=== PATIENT | male | born 1990 | race Caucasian/White ===

== ENCOUNTER 2020-07-09 14:10 | Emergency (ER) | payer OTHER, SELFPAY ==
--- NOTE | 2020-07-09 14:17 | XR_ITS ---
EXAMINATION: XR CHEST CLINICAL INFORMATION: Cough, fever COMPARISON: Chest 10/06/2019 TECHNIQUE: Frontal view (2 images) of the chest was obtained. FINDINGS: No significant abnormality is noted involving the heart, lungs, mediastinum, bony thorax or soft tissues. XR/XR chest 1V IMPRESSION: Unremarkable examination.
[2020-07-09 14:19] VITALS: BP 151/79; PULSE 108; RESP 18; TEMP 37.7; O2SAT 96; BMI 28.0
--- NOTE | 2020-07-09 14:46 | ED.URI ---
HPI - URI/Sore Throat General Chief Complaint: Upper Respiratory Symptoms Stated Complaint: Fever, Cough Time Seen by Provider: 07/09/20 14:16 Source: patient Mode of arrival: ambulatory History of Present Illness HPI Narrative: 29-year-old male with a past medical history of presenting to ED complaining of fever T-max 101?, and productive cough of phlegm since yesterday. Admits to recent travel to [place], return on Saturday, had negative COVID-19 testing upon returning to [place]. Denies CP/SOB, LE edema, history of clots, sick contacts MD elicited complaint: fever and cough Related Data Home Medications Medication Instructions Recorded Confirmed omeprazole 20 mg capsule,delayed 20 mg PO DAILY 05/10/20 05/22/20 release ranitidine HCl 150 mg tablet 150 mg PO .qd tab 05/10/20 05/10/20 Allergies Allergy/AdvReac Type Severity Reaction Status Date / Time NSAIDS (Non-Steroidal Allergy Severe STOMACH Unverified 04/14/20 19:29 Anti-Inflamma ULCER [NSAIDS (NON-STEROIDAL ANTI-INFLAMMA] shrimp [SHRIMP] Allergy Severe ANAPHYLAXIS Unverified 04/14/20 19:29 latex [LATEX] Allergy Intermediate RASH Unverified 04/14/20 19:29 aspirin [ASPIRIN] AdvReac Severe HX GASTRIC Unverified 04/14/20 19:29 ULCER, BLEEDING none Allergy Unknown Uncoded 04/03/19 00:00 Review of Systems Review of Systems: Constitutional: No Weight loss,+ Fever, No Chills ENT/Mouth: No Ear Pain, No Nasal Congestion, No Sinus Pain, No Hoarseness, No sore throat Cardiovascular: No Chest Pain, No SOB Respiratory: + Cough, + Sputum, No Wheezing Gastrointestinal: No Nausea, No Vomiting, No Diarrhea, No Constipation, No Abdominal pain Yes all other systems are reviewed and are negative PMFSH Past Medical History Attestation statement: The following information was validated with the patient. Medical History (Updated 07/09/20 @ 14:51 by ELSA Hernandez) History of duodenal ulcer Surgical History (Updated 05/10/20 @ 13:41 by MEAGAN Emanuel) Hx of colonoscopy (~02/2018) Hx of endoscopy Family History Family History (Updated 05/10/20 @ 13:42 by MEAGAN Emanuel) Father HTN (hypertension) Mother HTN (hypertension) Social History Social History (Updated 05/10/20 @ 13:43 by MEAGAN Emanuel) Alcohol intake: never Smoking Status: Never smoker Use of substances other than those prescribed or required for medical reasons: No Advance Directives: No Advance Directives Information Provided: No Physical Exam Vital Signs: Vital Signs: Last Vital Signs Temp 99.8 F 07/09/20 15:15 Pulse 115 H 07/09/20 15:15 Resp 16 07/09/20 15:15 BP 142/74 H 07/09/20 15:15 Pulse Ox 98 07/09/20 15:15 Body Mass Index 28.0 Const: General: cooperative and healthy appearing Orientation/consciousness: patient oriented x3 Limitations: no limitations HENMT: Head: Yes normal to inspection Ears: hearing grossly normal bilaterally General nose exam: Normal external nose present Face and sinus: Yes normal facial exam Eyes: General: appearance normal, both eyes and all related structures EOM: EOMs intact bilaterally Neck: Neck: Yes normal visual inspection and Yes no meningeal signs Resp: Effort & Inspection: normal respiratory effort Auscultation: clear to auscultation bilaterally, no rales, no rhonchi and no wheezes Cardio: Rate: regular rate Heart sounds: S1 normal heart sound present and S2 normal heart sound present GI: Inspection: Yes normal to inspection Skin: Rashes: no rashes Wounds: no wounds Neuro: General: patient oriented x3 and no meningeal signs Gait exam (Neuro): Normal gait present Extrem: Other: No LE edema General: Yes normal to inspection Course Course Course Narrative: -CXR unremarkable -1523--repeat vital signs patient is still with temp 99.8, still tachycardic, will obtain labs to rule out PE due to risk factors of travel and possible COVID-19 -1631-- WBC count 5.1, D-dimer negative, labs otherwise unremarkable -troponin negative, BNP negative -labs/imaging results discussed with patient with license and permit specialist. Worrisome signs and symptoms and strict return precautions discussed. Patient verbalized understanding feel safe for discharge home MDM - URI/Sore Throat MDM Narrative Medical decision making narrative: On exam tachycardic, low-grade temp 99.8?, tachycardia likely from fever, NAD/nontoxic-appearing, lungs CTA. Concern for viral syndrome/COVID-19. Rule out pneumonia. Lower concern for ACS/PE. Plan: CXR, COVID-19, Tylenol, reassessed Lab Data Result diagrams: 07/09/20 15:32 07/09/20 15:32 Labs: Lab Results 07/09/20 07/09/20 07/09/20 Range/Units 15:32 15:32 15:32 WBC 5.1 (4.8-10.8) X10*3/uL RBC 5.35 (4.60-5.80) X10*6/uL Hgb 15.2 (14.0-18.0) g/dl Hct 46.9 (42-52) % MCV 87.7 (80-98) fL MCH 28.4 (27.0-33.0) pg MCHC 32.4 (31.0-36.0) g/dl RDW 13.1 (11.0-16.0) % Plt Count 170 (160-400) X10*3/uL MPV 10.7 (9.4-12.4) fL Immature Gran % (Auto) 0.4 (0.0-0.4) % Neut % (Auto) 79.8 H (45-73) % Lymph % (Auto) 10.4 L (20-40) % [place] % (Auto) 8.6 (2-11) % Eos % (Auto) 0.4 (0-4) % Baso % (Auto) 0.4 (0-2) % Lymph # (Auto) 0.5 L (1.2-4.9) X10*3/uL [place] # (Auto) 0.4 (0.1-1.2) X10*3/uL Eos # (Auto) 0.0 (0.0-0.4) X10*3/uL Baso # (Auto) 0.0 (0.0-0.2) X10*3/uL Abs Immat Gran (auto) 0.02 (0.00-0.03) X10*3/uL Absolute Neuts (auto) 4.1 (2.0-8.3) X10*3/uL Absolute Nucleated RBC 0.000 (0.0-0.012) X10*3/uL Nucleated RBC % (auto) 0.0 (0.0-0.2) /100WBC Smear Tech's Comments VERIFIED D-Dimer < 200 NG/ML Sodium 139 (135-145) mmol/L Potassium 3.6 (3.3-5.1) mmol/l Chloride 104 (96-108) mmol/L Carbon Dioxide 27 (22-29) mmol/L Anion Gap 12 (12-20) BUN 13 (9-16) mg/dL Creatinine 0.90 (0.5-1.4) mg/dL Estim Creat Clear Calc 157.8 Estimated GFR > 60 Random Glucose 84 (60-115) mg/dL Calcium 9.0 (8.4-10.2) mg/dL Ferritin 30 (20-250) ng/mL Total Bilirubin (0.0-1.0) mg/dL Direct Bilirubin (0.0-0.5) mg/dL AST (5-37) U/L ALT (0-40) U/L Alkaline Phosphatase (39-117) U/L Lactate Dehydrogenase 141 (118-273) U/L Troponin I High Sens (<3.5-35.0) ng/L C-Reactive Protein 0.34 (< or = 0.50) mg/dL B-Natriuretic Peptide (<100) pg/mL Total Protein (6.5-8.0) g/dL Albumin (3.5-5.0) g/dL Procalcitonin ng/mL 07/09/20 07/09/20 07/09/20 Range/Units 15:32 15:32 15:32 WBC (4.8-10.8) X10*3/uL RBC (4.60-5.80) X10*6/uL Hgb (14.0-18.0) g/dl Hct (42-52) % MCV (80-98) fL MCH (27.0-33.0) pg MCHC (31.0-36.0) g/dl RDW (11.0-16.0) % Plt Count (160-400) X10*3/uL MPV (9.4-12.4) fL Immature Gran % (Auto) (0.0-0.4) % Neut % (Auto) (45-73) % Lymph % (Auto) (20-40) % [place] % (Auto) (2-11) % Eos % (Auto) (0-4) % Baso % (Auto) (0-2) % Lymph # (Auto) (1.2-4.9) X10*3/uL [place] # (Auto) (0.1-1.2) X10*3/uL Eos # (Auto) (0.0-0.4) X10*3/uL Baso # (Auto) (0.0-0.2) X10*3/uL Abs Immat Gran (auto) (0.00-0.03) X10*3/uL Absolute Neuts (auto) (2.0-8.3) X10*3/uL Absolute Nucleated RBC (0.0-0.012) X10*3/uL Nucleated RBC % (auto) (0.0-0.2) /100WBC Smear Tech's Comments D-Dimer NG/ML Sodium (135-145) mmol/L Potassium (3.3-5.1) mmol/l Chloride (96-108) mmol/L Carbon Dioxide (22-29) mmol/L Anion Gap (12-20) BUN (9-16) mg/dL Creatinine (0.5-1.4) mg/dL Estim Creat Clear Calc Estimated GFR Random Glucose (60-115) mg/dL Calcium (8.4-10.2) mg/dL Ferritin (20-250) ng/mL Total Bilirubin 0.7 (0.0-1.0) mg/dL Direct Bilirubin 0.3 (0.0-0.5) mg/dL AST 22 (5-37) U/L ALT 25 (0-40) U/L Alkaline Phosphatase 77 (39-117) U/L Lactate Dehydrogenase (118-273) U/L Troponin I High Sens < 3.5 (<3.5-35.0) ng/L C-Reactive Protein (< or = 0.50) mg/dL B-Natriuretic Peptide < 10 (<100) pg/mL Total Protein 7.7 (6.5-8.0) g/dL Albumin 4.6 (3.5-5.0) g/dL Procalcitonin 0.05 ng/mL Discharge Plan Discharge Clinical Impression: Upper respiratory infection Qualifiers: URI type: unspecified URI Qualified Code(s): J06.9 - Acute upper respiratory infection, unspecified Patient Disposition: Home, Self-Care Instructions: Viral Syndrome (ED) Additional Instructions: Based on your symptoms and history we have sent a COVID-19. Although your RESULT IS PENDING at this time. RESULTS should return within 72 hours. At this time you will be contacted with either NEGATIVE OR POSITIVE results. -Please wait until we contact you for your results. At this time you will be okay for discharge. Please plan for self quarantine for up to 14 days. Do not expose yourself to others. You may not go to work. If testing does come back negative you may return to activities as long as you are no longer having any symptoms for at least 3 days. Please continue to follow cold instructions and wash your hands frequently. You may take Tylenol as directed on the bottle for pain or fever. CDC Guidelines for home isolation: - Stay away from others - WEAR A MASK if you are sick AND STAY HOME - Cover your mouth and nose with a tissue when you cough or sneeze. Dispose of tissues in a lined trash can and wash your hands immediately with soap and water for at least 20 seconds. If soap and water are not available, clean hands with alcohol-based hand supervisor special services that contains at least 60% alcohol. - Clean your hands often with soap and water for at least 20 seconds - Avoid touching your eyes, nose and mouth with unwashed hands - Do not share dishes, drinking glasses, cups, eating utensils, towels, or bedding with other people in your home. After using these items, wash them thoroughly with soap and water or put in the solution sales senior executive. - Clean high-touch surfaces in your isolation area ( sick room and bathroom) every day; let a caregiver clean and disinfect high-touch surfaces in other areas of the home. Clean the area or item with soap and water or another detergent if it is dirty. Then, use a household disinfectant. - Limit contact with pets and animals: If you must care for a pet, wash your hands before and after interacting with them) Seg?n maximilian s?ntomas e historial, le enviamos un COVID-19. Aunque hancock RESULTADO EST? PENDIENTE en connie momento. Los RESULTADOS deben regresar dentro de las 72 horas. En connie momento ser? contactado con resultados NEGATIVOS O POSITIVOS. -Espere hasta que nos comuniquemos con usted para conocer maximilian resultados. En connie momento estar? carmen para el romina. Planifique la auto cuarentena diamond un m?ximo de 14 d?as. No se exponga a los dem?s. Puede que no vaya a trabajar. Si las pruebas resultan negativas, puede volver a maximilian actividades siempre que ya no tenga cherie?n s?ntoma diamond al menos 3 d?as. Contin?e siguiendo las instrucciones en fr?o y l?vese las keshav con frecuencia. Puede gaston Tylenol jeanie se indica en el frasco para el dolor o la fiebre. [place] de los CDC para el aislamiento en el hogar: - Mantente alejado de los dem?s - USE KAREN M?SCARA si est? enfermo Y QUEDE EN CASA - C?brase la boca y la nariz con un pa?uelo cuando tosa o estornude. Deseche los pa?uelos desechables en un bote de basura forrado y l?vese las keshav inmediatamente con agua y jab?n diamond al menos 20 segundos. Si no dispone de agua y jab?n, l?vese las keshav con un desinfectante para keshav a base de alcohol que contenga al menos un 60% de alcohol. - L?vese las keshav con frecuencia con agua y jab?n diamond al menos 20 segundos - Evite tocarse los ojos, la nariz y la boca con las keshav sin cassandra - No comparta platos, vasos, tazas, cubiertos, toallas o ropa de cama con otras personas en hancock hogar. Despu?s de usar estos art?culos, l?velos carmen con agua y jab?n o p?ngalos en el [place]. - Limpie las superficies de alto contacto en hancock ?melita de aislamiento ( habitaci?n de enfermo y ba?o) todos los d?as; deje que un cuidador limpie y desinfecte las superficies de alto contacto en otras ?reas de la casa. Limpie el ?melita o el art?culo con agua y jab?n u otro detergente si est? sucio. Luego, use un desinfectante dom?stico. - Limite el contacto con mascotas y animales: si debe cuidar a karen mascota, l?vese las keshav antes y despu?s de interactuar con ellos) Prescriptions: No Action omeprazole 20 mg capsule,delayed release(DR/EC) 20 mg PO DAILY RF: 0 ranitidine HCl 150 mg tablet 150 mg PO .qd RF: 0 Referrals: [facility] [Primary Care Provider] - 2 days Stand Alone Forms: Work/School Release Print Language: Tajik
[2020-07-09] MEDS: Acetaminophen 325 MG TABLET PO (15:09)
[2020-07-09 15:15] VITALS: BP 142/74; PULSE 115; RESP 16; TEMP 37.7; O2SAT 98
[2020-07-09 15:44] LABS: Basophils Percent Auto 0.4 % (0-2); Eosinophils Percent Auto 0.4 % (0-4); Hematocrit 46.9 % (42-52); Hemoglobin 15.2 g/dl (14.0-18.0); Imm Gran Abs Auto 0.02 X10*3/uL (0.00-0.03); Imm Gran Pct Auto 0.4 % (0.0-0.4); Lymphocytes Absolute Auto 0.5 X10*3/uL (1.2-4.9); Lymphocytes Percent Auto 10.4 % (20-40); MANUAL DIFF FLAG SCAN; Mean Corpuscular HGB Conc 32.4 g/dl (31.0-36.0); Mean Corpuscular Hemoglobin 28.4 pg (27.0-33.0); Mean Corpuscular Volume 87.7 fL (80-98); Mean Platelet Volume 10.7 fL (9.4-12.4); Monocytes Absolute Auto 0.4 X10*3/uL (0.1-1.2); Monocytes Percent Auto 8.6 % (2-11); Neutrophils Absolute Auto 4.1 X10*3/uL (2.0-8.3); Neutrophils Percent Auto 79.8 % (45-73); Platelet Count 170 X10*3/uL (160-400); Red Blood Count 5.35 X10*6/uL (4.60-5.80); Red Cell Distribution Width 13.1 % (11.0-16.0); SCAN SMEAR FLAG 1; White Blood Count 5.1 X10*3/uL (4.8-10.8)
[2020-07-09 15:51] LABS: D Dimer < 200 NG/ML
[2020-07-09 16:01] LABS: Anion Gap 12 (12-20); Blood Urea Nitrogen 13 mg/dL (9-16); C Reactive Protein 0.34 mg/dL (< or = 0.50); Carbon Dioxide 27 mmol/L (22-29); Chloride 104 mmol/L (96-108); Creatinine Clr Calc Pharmacy 157.8; Estimated Glomerular Filt Rate > 60; Glucose Random 84 mg/dL (60-115); Lactate Dehydrogenase 141 U/L (118-273); Potassium 3.6 mmol/l (3.3-5.1); Sodium 139 mmol/L (135-145)
[2020-07-09 16:03] LABS: SLIDE REVIEW VERIFIED
[2020-07-09 16:04] LABS: Alanine Aminotransferase 25 U/L (0-40); Albumin Level 4.6 g/dL (3.5-5.0); Alkaline Phosphatase 77 U/L (39-117); Aspartate Amino Transferase 22 U/L (5-37); Bilirubin Direct 0.3 mg/dL (0.0-0.5); Bilirubin Total 0.7 mg/dL (0.0-1.0); Total Protein 7.7 g/dL (6.5-8.0)
[2020-07-09 16:21] LABS: Procalcitonin 0.05 ng/mL
[2020-07-09 16:24] LABS: Ferritin 30 ng/mL (20-250)
[2020-07-09 16:51] LABS: B Type Natriuretic Peptide < 10 pg/mL (<100); Troponin-I High Sensitivity < 3.5 ng/L (<3.5-35.0)
== END 2020-07-09 17:48 | disposition home or self-care (01) ==
PROVIDERS: Physician Assistant; Emergency Provider Internal Medicine
DX: U07.1 COVID-19 (principal)
CPT/HCPCS: 36415; 71045; 80048; 80076; 82728; 83615; 83880; 84145; 84484; 85025; 85379; 86140; 99284; U0003

== ENCOUNTER 2020-07-19 16:29 | Outpatient (REF) | payer SELFPAY | END 2020-07-19 16:30 | disposition home or self-care (01) | LOC: HO.LAB 16:29 | PROVIDERS: Visit Provider Internal Medicine | DX: Z20.828 Contact with and (suspected) exposure to other viral communicable diseases (principal) | CPT/HCPCS: C9803; U0003 ==

== ENCOUNTER 2020-08-22 09:33 | Outpatient (REF) | payer MEDICAID, SELFPAY ==
--- NOTE | 2020-08-22 09:41 | XR_ITS ---
EXAMINATION: XR ELBOW, RIGHT CLINICAL INFORMATION: Pain COMPARISON: None TECHNIQUE: AP, lateral, and oblique views of the right elbow. FINDINGS: The bones and soft tissues are normal. No fracture or joint effusion. Alignment is anatomic. Joint spaces are maintained. XR/XR elbow RT min 3V IMPRESSION: Normal right elbow.
== END 2020-08-22 09:34 | disposition home or self-care (01) ==
LOC: HO.XRAY 09:33
PROVIDERS: PCP Internal Medicine; Visit Provider Internal Medicine
DX: M25.521 Pain in right elbow (principal)
CPT/HCPCS: 73080

== ENCOUNTER → 2020-09-14 10:10 | Outpatient (BNVA) | payer MEDICAID, SELFPAY | PROVIDERS: PCP Internal Medicine; Visit Provider Physician Assistant | DX: M77.8 Other enthesopathies, not elsewhere classified (principal) | CPT/HCPCS: 99202 ==

== ENCOUNTER → 2020-11-18 10:13 | Outpatient (BNVA) | payer MEDICAID, SELFPAY | PROVIDERS: PCP Internal Medicine; Visit Provider Nurse Practitioner ==

== ENCOUNTER → 2021-05-01 09:22 | Outpatient (BNVA) | payer MEDICAID, SELFPAY | PROVIDERS: PCP Internal Medicine; Visit Provider Nurse Practitioner ==

== ENCOUNTER 2021-08-06 21:49 | Emergency (ER) | payer MEDICAID, SELFPAY ==
[2021-08-06 22:03] VITALS: BP 133/68; PULSE 88; RESP 16; TEMP 36.2; O2SAT 99; BMI 28.1
[2021-08-06] MEDS: Lidocaine 4 % Patch ADH..PATCH 1 PATCH TRANSDERMA (23:32)
[2021-08-06] MEDS: Ketorolac Tromethamine 30 MG/ML VIAL 15 MG IM (23:33)
[2021-08-06] MEDS: Acetaminophen 325 MG TABLET 975 MG PO (23:33)
--- NOTE | 2021-08-07 02:29 | PC.NURSE ---
pt ambulatory with steady, independent gait. reports back pain has improved since meds, now rates pain as 4/10. pt awaiting md pa and dispo
[2021-08-07 03:26] VITALS: BP 128/72; PULSE 72; RESP 17; O2SAT 97
--- NOTE | 2021-08-07 03:29 | ED_ITS ---
HPI - Back Pain/Injury General Chief Complaint: Back Pain/Injury Stated Complaint: back pain Time Seen by Provider: 08/06/21 22:26 Source: patient and certified court interpreter Mode of arrival: ambulatory History of Present Illness HPI Narrative: 30-year-old male with acute on chronic back pain after he slipped and fell on the ice on Saturday. He denies any head strike or loss of consciousness at that time and has had no further issues with fever, chills, nausea, vomiting, diarrhea and denies any bowel or bladder dysfunction. He does states that the pain is primarily on the left side of the lower back with radiation into the left lower extremity but denies any loss of strength or associated numbness/tingling. Related Data Home Medications Medication Instructions Recorded Confirmed diclofenac sodium 1 % topical gel 2 g TOPICAL QID 09/14/20 (Voltaren) fluticasone propionate 50 1 spray INTRANASAL DAILY 09/14/20 mcg/actuation nasal spray,suspension ketotifen fumarate 0.025 % (0.035 1 drp OPHTHALMIC (EYE) BID 09/14/20 %) eye drops (Allergy Eye (ketotifen)) loratadine 10 mg tablet (Claritin) 10 mg PO DAILY 09/14/20 Previous Rx's Medication Instructions Recorded famotidine 40 mg tablet (Pepcid) 40 mg PO DAILY 30 Days #30 tab 05/01/21 omeprazole 20 mg capsule,delayed 20 mg PO DAILY 30 Days #30 cap 05/01/21 release ketorolac 10 mg tablet 10 mg PO Q6H PRN 5 Days #20 tab 08/07/21 Allergies Allergy/AdvReac Type Severity Reaction Status Date / Time NSAIDS (Non-Steroidal Allergy Severe STOMACH Verified 08/06/21 22:10 Anti-Inflamma ULCER [NSAIDS (NON-STEROIDAL ANTI-INFLAMMA] shrimp [SHRIMP] Allergy Severe ANAPHYLAXIS Verified 08/06/21 22:10 latex [LATEX] Allergy Intermediate RASH Verified 08/06/21 22:10 aspirin [ASPIRIN] AdvReac Severe HX GASTRIC Verified 08/06/21 22:10 ULCER, BLEEDING Review of Systems Review of Systems: Pertinent positives and negatives as stated in HPI 10 point review of systems is otherwise negative. PMFSH Past Medical History Source: nursing notes reviewed Medical History History of duodenal ulcer Surgical History Hx of colonoscopy (~02/2018) Hx of endoscopy Family History Family History Father HTN (hypertension) Mother HTN (hypertension) Social History Social History Alcohol intake: never Advance Directives: No Advance Directives Information Provided: Yes Current occupational status: employed Current occupation: right handed Physical Exam Vital Signs: Vital Signs: Last Vital Signs Temp 97.1 F 08/06/21 22:03 Pulse 72 08/07/21 03:26 Resp 17 08/07/21 03:26 BP 128/72 08/07/21 03:26 Pulse Ox 97 08/07/21 03:26 BMI result Body Mass Index 28.1 VITAL SIGNS: Reviewed. GENERAL: Well developed, well nourished, in no acute distress. HEAD: Normocephalic/atraumatic EYES: PERRLA, EOMI LUNGS: Normal breath sounds. No adventitious sounds or accessory muscle use. SpO2<97> CARDIOVASCULAR: Regular rate and rhythm without noted murmurs ABDOMEN: Soft, non-tender, non-distended with bowel sounds. BACK: No midline vertebral tenderness, but there is tenderness on palpation to the left of the lumbar spine and straight leg test is negative. SKIN: Inspection of the skin reveals no rashes NEUROLOGIC: Alert and oriented x 4. Strength and sensation to light touch were grossly intact x 4. Course Course Course Narrative: 30-year-old male with history and clinical presentation consistent with acute on chronic back injury and after receiving combination analgesics with lidocaine patch has had good reduction in his pain level and will be discharged home in stable condition. Discharge Plan Discharge Clinical Impression: Strain of lumbar region, Back pain Patient Disposition: Home, Self-Care Instructions: Muscle Strain (ED), Back Pain (ED) Additional Instructions: 1. Tylenol 1000 mg, por v?a oral, cada 6 horas seg?n sea necesario para controlar el dolor. No exceda los 4000 mg dentro de las 24 horas. 2. Parche de lidoca?na, est? disponible sin receta y debe aplicarse en el ?melita de m?xima sensibilidad jeanie se indica en el empaque exterior. 3. Luz un seguimiento con hancock proveedor de atenci?n primaria en los pr?ximos 2 a 3 d?as para karen reevaluaci?n. Regrese a la annie de emergencias si los s?ntomas empeoran. Prescriptions: New ketorolac 10 mg tablet 10 mg PO Q6H PRN (Reason: pain) 5 Days Qty: 20 RF: 0 No Action fluticasone propionate 50 mcg/actuation spray,suspension 1 spray intranasal DAILY RF: 0 ketotifen fumarate [Allergy Eye (ketotifen)] 0.025 % (0.035 %) drops 1 drp ophthalmic (eye) BID RF: 0 loratadine [Claritin] 10 mg tablet 10 mg PO DAILY RF: 0 diclofenac sodium [Voltaren] 1 % gel 2 g topical QID RF: 0 omeprazole 20 mg capsule,delayed release(DR/EC) 20 mg PO DAILY 30 Days Qty: 30 RF: 6 famotidine [Pepcid] 40 mg tablet 40 mg PO DAILY 30 Days Qty: 30 RF: 6 Referrals: [facility] [Primary Care Provider] - 2 days Stand Alone Forms: Work/School Release Interventions: LWBS Worksheet Last Done: 08/07/21 02:19 Print Language: Azeri
== END 2021-08-07 03:43 | disposition home or self-care (01) ==
PROVIDERS: Emergency Provider Student in an Organized Health Care Education/Training Program
DX: S39.012A Strain of muscle, fascia and tendon of lower back, initial encounter (principal); W00.0XXA Fall on same level due to ice and snow, initial encounter; G89.29 Other chronic pain; Y93.01 Activity, walking, marching and hiking; Y92.480 Sidewalk as the place of occurrence of the external cause; Y99.9 Unspecified external cause status
CPT/HCPCS: 96372; 99283; 99284; J1885

== ENCOUNTER → 2021-11-02 07:13 | Outpatient (BNVA) | payer MEDICAID, SELFPAY | PROVIDERS: PCP Internal Medicine; Referring Provider Internal Medicine; Visit Provider Nurse Practitioner | DX: K21.9 Gastro-esophageal reflux disease without esophagitis (principal); Z87.19 Personal history of other diseases of the digestive system; Z88.8 Allergy status to other drugs, medicaments and biological substances; Z88.6 Allergy status to analgesic agent; Z91.040 Latex allergy status; Z91.013 Allergy to seafood | CPT/HCPCS: 99212 ==

== ENCOUNTER 2022-04-19 19:50 | Emergency (ER) | payer MEDICAID, SELFPAY ==
--- NOTE | 2022-04-19 | ECG_ITS ---
Test Reason : cp Blood Pressure : / mmHG Vent. Rate : 076 BPM Atrial Rate : 076 BPM P-R Int : 164 ms QRS Dur : 088 ms QT Int : 360 ms P-R-T Axes : 060 036 034 degrees QTc Int : 405 ms Normal sinus rhythm Normal ECG When compared with ECG of 14-JUL-2019 22:39, No significant change was found Referred By: Generic ED Physician Electronically Signed By:ROSALBA SUAREZ
--- NOTE | ~2022-04-19 | XR_ITS ---
EXAMINATION: XR CHEST CLINICAL INFORMATION: Chest pain COMPARISON: Chest x-ray 07/09/2020 TECHNIQUE: Frontal view of the chest was obtained. FINDINGS: Cardiac silhouette is normal in size. The lungs are well aerated. There is no lobar consolidation. No pleural effusion or pneumothorax. XR/XR chest 1V IMPRESSION: Stable examination demonstrating no acute pulmonary pathology.
[2022-04-19 20:01] VITALS: BP 165/80; PULSE 80; RESP 18; TEMP 37.2; O2SAT 100; BMI 29.2
[2022-04-19 20:17] LABS: MANUAL DIFF FLAG NO
[2022-04-19 20:19] LABS: Basophils Percent Auto 0.5 % (0-2); Eosinophils Absolute Auto 0.3 X10*3/uL (0.0-0.4); Eosinophils Percent Auto 3.1 % (0-4); Hematocrit 46.1 % (42.0-52.0); Hemoglobin 15.5 g/dl (14.0-18.0); Imm Gran Abs Auto 0.02 X10*3/uL (0.00-0.03); Imm Gran Pct Auto 0.3 % (0.0-0.4); Lymphocytes Absolute Auto 1.3 X10*3/uL (1.2-4.9); Lymphocytes Percent Auto 16.1 % (20-40); Mean Corpuscular HGB Conc 33.6 g/dl (31.0-36.0); Mean Corpuscular Hemoglobin 29.2 pg (27.0-33.0); Mean Corpuscular Volume 86.8 fL (80.0-98.0); Mean Platelet Volume 10.4 fL (9.4-12.4); Monocytes Absolute Auto 0.4 X10*3/uL (0.1-1.2); Monocytes Percent Auto 5.5 % (2-11); Neutrophils Percent Auto 74.5 % (45-73); Platelet Count 209 X10*3/uL (160-400); Red Blood Count 5.31 X10*6/uL (4.60-5.80); Red Cell Distribution Width 12.3 % (11.0-16.0)
[2022-04-19 20:36] LABS: Alanine Aminotransferase 31 U/L (0-40); Alkaline Phosphatase 84 U/L (39-117); Anion Gap 14 (12-20); Aspartate Amino Transferase 25 U/L (5-37); Bilirubin Total 0.9 mg/dL (0.0-1.0); Blood Urea Nitrogen 13 mg/dL (9-16); Calcium 9.8 mg/dL (8.4-10.2); Carbon Dioxide 26 mmol/L (22-29); Chloride 101 mmol/L (96-108); Creatinine Clr Calc Pharmacy 143.7; Estimated Glomerular Filt Rate > 60; Glucose Random 107 mg/dL (60-115); Potassium 3.8 mmol/L (3.3-5.1); Sodium 137 mmol/L (135-145); Total Protein 8.1 g/dL (6.5-8.0)
[2022-04-19 20:41] LABS: Troponin-I High Sensitivity < 3.5 ng/L (<3.5-35.0)
[2022-04-19 22:58] VITALS: BP 141/79; PULSE 61; RESP 18; TEMP 37.2; O2SAT 99
== END 2022-04-20 05:31 | disposition left against medical advice (07) ==
PROVIDERS: Emergency Provider Emergency Medicine; PCP Internal Medicine
DX: R07.9 Chest pain, unspecified (principal); R42 Dizziness and giddiness; K21.9 Gastro-esophageal reflux disease without esophagitis
CPT/HCPCS: 36415; 71045; 80053; 84484; 85025; 93005; 99283

== ENCOUNTER 2022-04-23 09:33 | Emergency (ER) | payer MEDICAID, SELFPAY ==
[2022-04-23 12:35] VITALS: BP 137/83; PULSE 82; RESP 18; TEMP 36.2; O2SAT 99; BMI 29.8
[2022-04-23 13:13] LABS: COVID-19 Test Negative (Negative); IDNOW Serial# 08D9AD1C
--- NOTE | 2022-04-23 15:08 | ED.GENADULT ---
HPI - General Adult General Chief complaint: Upper Respiratory Symptoms Stated complaint: body aches Time Seen by Provider: 04/23/22 14:11 Source: patient Mode of arrival: ambulatory Limitations: no limitations History of Present Illness HPI narrative: 31-year-old male brought to the ED for bodyaches, nasal congestion, subjective fever, heaache and chills since yesterday. Patient states his son and are also sick. patient denies any chest pain, coughing, sore throat, abdominal pain, or any complaints. Related Data Home Medications Medication Instructions Recorded Confirmed diclofenac sodium 1 % topical gel 2 g topical QID 09/14/20 (Voltaren) fluticasone propionate 50 1 spray intranasal DAILY 09/14/20 mcg/actuation nasal spray,suspension ketotifen fumarate 0.025 % (0.035 1 drp ophthalmic (eye) BID 09/14/20 %) eye drops (Allergy Eye (ketotifen)) loratadine 10 mg tablet (Claritin) 10 mg PO DAILY 09/14/20 Previous Rx's Medication Instructions Recorded ketorolac 10 mg tablet 10 mg PO Q6H PRN pain 5 days #20 08/07/21 tabs famotidine 40 mg tablet (Pepcid) 40 mg PO DAILY 30 days #30 tabs 11/02/21 omeprazole 20 mg capsule,delayed 20 mg PO DAILY 30 days #30 caps 11/02/21 release Allergies Allergy/AdvReac Type Severity Reaction Status Date / Time NSAIDS (Non-Steroidal Allergy Severe STOMACH Verified 11/02/21 07:21 Anti-Inflamma ULCER [NSAIDS (NON-STEROIDAL ANTI-INFLAMMA] shrimp [SHRIMP] Allergy Severe ANAPHYLAXIS Verified 11/02/21 07:21 latex [LATEX] Allergy Intermediate RASH Verified 11/02/21 07:21 aspirin [ASPIRIN] AdvReac Severe HX GASTRIC Verified 11/02/21 07:21 ULCER, BLEEDING Review of Systems Review of Systems: headache, bodyaches, chills, nassal congestion, and subjective fever Yes all other systems are reviewed and are negative PMFSH Past Medical History Medical History History of duodenal ulcer Surgical History Hx of colonoscopy (~02/2018) Hx of endoscopy Family History Family History Father HTN (hypertension) Mother HTN (hypertension) Social History Social History Alcohol intake: never Advance Directives: No Advance Directives Information Provided: No Current occupational status: employed Current occupation: right handed Physical Exam ED Vital Signs: Vital Signs - 24 hr 04/23/22 12:35 Temperature 97.1 F Pulse Rate 82 Respiratory Rate 18 Blood Pressure 137/83 Pulse Oximetry 99 Oxygen Delivery Method Room Air BMI result Body Mass Index 29.8 Const General: cooperative, healthy appearing, comfortable, no acute distress, well developed, alert and awake Orientation/consciousness: oriented to person, oriented to place, oriented to time and patient oriented x3 HENMT Head: Yes normal to inspection, Yes No palpable skull fracture present, Yes normocephalic, Yes atraumatic and No abrasion Ears: hearing grossly normal bilaterally, external ears normal, TM's normal bilaterally, EAC's normal, mastoids normal and no periauricular adenopathy Face and sinus: Yes normal facial exam and Yes sinuses nontender Teeth and gingiva: dentition normal and gingiva normal Throat: Yes posterior oropharynx normal, Yes tonsils normal and Yes uvula midline Eyes General: appearance normal, both eyes and all related structures Neck Neck: Yes normal visual inspection, Yes full ROM, Yes no lymphadenopathy, Yes no meningeal signs, Yes trachea midline, Yes supple, No anterior neck swelling and No tender Chest Chest palpation & inspection: normal inspection of the chest and normal palpation of entire chest wall Resp Effort & Inspection: normal respiratory effort and able to speak in complete sentences Auscultation: clear to auscultation bilaterally Cardio Jugular venous distension: no JVD Heart sounds: S1 normal heart sound present and S2 normal heart sound present GI Inspection: Yes normal to inspection and No abdominal wall ecchymosis Palpation (GI): Soft to palpation, not firm, nontender, no guarding and not rigid General: No CVA tenderness and Yes no CVA tenderness Back/Spine/Pelvis Back: no CVA tenderness, No CVA tenderness and No back tenderness Skin General skin exam: no rashes or lesions noted, elasticity normal and turgor normal Neuro General: oriented to person, oriented to place, oriented to time, patient oriented x3, gait normal, tone normal, moves all extremities, Normal light touch and pain sensation, no meningeal signs, no focal motor deficits and CN's II-XI intact bilaterally Extrem General: Yes normal to inspection and Yes full ROM Psych Appearance: grossly normal, well kempt and not disheveled Course Course Course Narrative: COVID swab ordered. Reevaluation(s) Reevaluation #1: COVID swab negative. patient informed to rest and retest for covid in 5 days from initial date Time: 15:20 Medical Decision Making [facility] Narrative Medical decision making narrative: URI, Viral SYndrome Lab Data Labs: Lab Results 04/23/22 Range/Units 12:40 COVID-19 (BRANDEE) Negative (Negative) COVID-19 Clin Com See Note Discharge Plan Discharge Clinical Impression: Viral syndrome Patient Disposition: Home, Self-Care Instructions: Viral Syndrome (ED) Additional Instructions: [place] hisopo COVID result? negativo. Se recomienda volver a realizar la prueba de COVID 5 d?as despu?s del inicio de los s?ntomas. Regrese al servicio de urgencias de inmediato por cualquier dolor tor?cico, dificultad para respirar, tos con bhavya, debilidad, mareos, dolor abdominal, rigidez en el nishi, fotofobia, dolor abdominal, disuria, hematuria o cualquier otro s?ntoma preocupante. Por favor, bonita un seguimiento con el proveedor de atenci?n primaria. Tambi?n puede comprar buey de pulso de venta rosalva en la farmacia y si [place] saturaci?n de O2 por debajo del 94%, regrese al servicio de urgencias de inmediato. Prescriptions: No Action ketorolac 10 mg tablet 10 mg PO Q6H PRN (Reason: pain) 5 Days Qty: 20 0RF Rx Instructions: Patient received IM Toradol here in the emergency room. fluticasone propionate 50 mcg/actuation spray,suspension 1 spray intranasal DAILY Rx Instructions: administer into each nostril ketotifen fumarate [Allergy Eye (ketotifen)] 0.025 % (0.035 %) drops 1 drp ophthalmic (eye) BID Rx Instructions: administer at least 8 hours apart loratadine [Claritin] 10 mg tablet 10 mg PO DAILY diclofenac sodium [Voltaren] 1 % gel 2 g topical QID Rx Instructions: apply to single elbow, wrist or hand; for hand includes palm/fingers/back of hand omeprazole 20 mg capsule,delayed release(DR/EC) 20 mg PO DAILY 30 Days Qty: 30 6RF famotidine [Pepcid] 40 mg tablet 40 mg PO DAILY 30 Days Qty: 30 6RF Stand Alone Forms: Work/School Release Interventions: ED Discharge Assessment Last Done: 04/23/22 15:37 Discharge Date/Time: 04/23/22 15:37 Print Language: Bermudian
== END 2022-04-23 15:37 | disposition home or self-care (01) ==
PROVIDERS: Emergency Provider Emergency Medicine; PCP Internal Medicine
DX: B34.9 Viral infection, unspecified (principal); R51.9 Headache, unspecified; Z20.822 Contact with and (suspected) exposure to COVID-19
CPT/HCPCS: 87635; 99282; 99283

== ENCOUNTER 2022-06-05 10:04 | Emergency (ER) | payer MEDICAID, SELFPAY ==
--- NOTE | ~2022-06-05 | XR_ITS ---
EXAMINATION: XR LUMBOSACRAL SPINE CLINICAL INFORMATION: Low back pain after lifting injury COMPARISON: None TECHNIQUE: Three views of the lumbosacral spine. FINDINGS: Lumbar vertebra have normal height and alignment. No fracture or subluxation. The disc spaces are well-preserved. No evidence of degenerative disc disease. No focal lytic or blastic bone lesion. Sacrum and sacroiliac joints are unremarkable. XR/XR lumbar spine 2-3V IMPRESSION: No fracture or malalignment. No acute findings in the lumbosacral spine.
[2022-06-05 10:21] VITALS: BP 122/72; PULSE 77; RESP 20; TEMP 36.6; O2SAT 98; BMI 29.3
[2022-06-05 14:46] VITALS: BP 120/68; PULSE 68; RESP 18; TEMP 36.7; O2SAT 99
--- NOTE | 2022-06-05 15:59 | ED_ITS ---
HPI - General Adult General Chief complaint: Back Pain/Injury Stated complaint: Back pain Time Seen by Provider: 06/05/22 14:38 Source: patient Mode of arrival: ambulatory Limitations: no limitations History of Present Illness HPI narrative: 31-year-old male presents to ED for lower back pain after heavy lifting of boxes at work yesterday. patient denies any blunt trauma. patient denies any abdominal pain, dysuria, hematuria, flank pain, fever, chills, dysuria, hematuria, or testicular pain. Patient denies any urinary/bowel incontinence. Patient denies any fever or chills. Patient denies any IV drug use. Patient denies any immunocompromise diseases. Related Data Home Medications Medication Instructions Recorded Confirmed diclofenac sodium 1 % topical gel 2 g topical QID 09/14/20 (Voltaren) fluticasone propionate 50 1 spray intranasal DAILY 09/14/20 mcg/actuation nasal spray,suspension ketotifen fumarate 0.025 % (0.035 1 drp ophthalmic (eye) BID 09/14/20 %) eye drops (Allergy Eye (ketotifen)) loratadine 10 mg tablet (Claritin) 10 mg PO DAILY 09/14/20 Previous Rx's Medication Instructions Recorded ketorolac 10 mg tablet 10 mg PO Q6H PRN pain 5 days #20 08/07/21 tabs famotidine 40 mg tablet (Pepcid) 40 mg PO DAILY 30 days #30 tabs 11/02/21 omeprazole 20 mg capsule,delayed 20 mg PO DAILY 30 days #30 caps 11/02/21 release cyclobenzaprine 10 mg tablet 10 mg PO BEDTIME PRN muscle spasm 06/05/22 #10 tabs oxycodone 5 mg capsule 5 mg PO TID PRN pain 3 days #9 caps 06/05/22 prednisone 20 mg tablet 40 mg PO DAILY 5 days #10 tabs 06/05/22 Allergies Allergy/AdvReac Type Severity Reaction Status Date / Time NSAIDS (Non-Steroidal Allergy Severe STOMACH Verified 11/02/21 07:21 Anti-Inflamma ULCER [NSAIDS (NON-STEROIDAL ANTI-INFLAMMA] shrimp [SHRIMP] Allergy Severe ANAPHYLAXIS Verified 11/02/21 07:21 latex [LATEX] Allergy Intermediate RASH Verified 11/02/21 07:21 aspirin [ASPIRIN] AdvReac Severe HX GASTRIC Verified 11/02/21 07:21 ULCER, BLEEDING Review of Systems Review of Systems: back pain Yes all other systems are reviewed and are negative [facility] Past Medical History Medical History History of duodenal ulcer Surgical History Hx of colonoscopy (~02/2018) Hx of endoscopy Family History Family History Father HTN (hypertension) Mother HTN (hypertension) Social History Social History Alcohol intake: never Advance Directives: No Current occupational status: employed Current occupation: right handed Physical Exam ED Vital Signs: Vital Signs - 24 hr 06/05/22 10:21 06/05/22 14:46 Temperature 97.8 F 98.0 F Pulse Rate 77 68 Respiratory Rate 20 18 Blood Pressure 122/72 120/68 Pulse Oximetry 98 99 Oxygen Delivery Method Room Air Room Air BMI result Body Mass Index 29.3 Const General: cooperative, healthy appearing, comfortable, no acute distress, well developed and alert Orientation/consciousness: oriented to time and patient oriented x3 HENMT Head: Yes normal to inspection, Yes No palpable skull fracture present, Yes normocephalic, Yes atraumatic and No abrasion Eyes General: appearance normal, both eyes and all related structures Neck Neck: Yes normal visual inspection, Yes full ROM, Yes no lymphadenopathy, Yes no meningeal signs, Yes trachea midline, Yes supple, No anterior neck swelling and No tender Chest Chest palpation & inspection: normal inspection of the chest and normal palpation of entire chest wall Resp Effort & Inspection: normal respiratory effort and able to speak in complete sentences Auscultation: clear to auscultation bilaterally Cardio Jugular venous distension: no JVD Heart sounds: S1 normal heart sound present and S2 normal heart sound present GI Inspection: Yes normal to inspection and No abdominal wall ecchymosis Palpation (GI): Soft to palpation, not firm, nontender, no guarding and not rigid General: No CVA tenderness and Yes no CVA tenderness Back/Spine/Pelvis Other: Negative for spine tenderness. positive for back muscular tenderness on palpation and pain on range of motion of back Back: no CVA tenderness, No CVA tenderness and No back tenderness Skin General skin exam: no rashes or lesions noted and elasticity normal Neuro General: oriented to time, patient oriented x3, gait normal and no meningeal signs Cranial nerves: Yes CN's II-XII intact bilaterally Extrem General: Yes normal to inspection and Yes full ROM Psych Appearance: grossly normal, well kempt and not disheveled Course Course Course Narrative: Negative spine tenderness Reevaluation(s) Reevaluation #1: No need for x-ray. Diagnosis back strain muscle sprain. Will discharge with pain med still to follow up with primary care provider Time: 16:16 Medical Decision Making [facility] Narrative Medical decision making narrative: Back Sprain Discharge Plan Discharge Clinical Impression: Lumbar back sprain Patient Disposition: Home, Self-Care Instructions: Low Back Strain (ED), Acute Low Back Pain (ED) Additional Instructions: Necesitar? analg?sicos y relajantes musculares para el dolor. Regrese al servicio de urgencias inmediatamente si empeora el dolor de espalda, la incontinencia urinaria o intestinal, la disuria, la hematuria, el dolor en el costado, el dolor testicular, el dolor abdominal, las n?useas, los v?mitos o cualquier otro s?ntoma preocupante. Por favor, bonita un seguimiento con el PCP. Prescriptions: New prednisone 20 mg tablet 40 mg PO DAILY 5 Days Qty: 10 0RF oxycodone 5 mg capsule 5 mg PO TID PRN (Reason: pain) 3 Days Qty: 9 0RF Rx Instructions: Partial Fill upon patient request. side effect is drowsiness. Do not take at work or while driving cyclobenzaprine 10 mg tablet 10 mg PO BEDTIME PRN (Reason: muscle spasm) Qty: 10 0RF Rx Instructions: side effect is drowsiness. Take at night when going to sleep No Action ketorolac 10 mg tablet 10 mg PO Q6H PRN (Reason: pain) 5 Days Qty: 20 0RF Rx Instructions: Patient received IM Toradol here in the emergency room. fluticasone propionate 50 mcg/actuation spray,suspension 1 spray intranasal DAILY Rx Instructions: administer into each nostril ketotifen fumarate [Allergy Eye (ketotifen)] 0.025 % (0.035 %) drops 1 drp ophthalmic (eye) BID Rx Instructions: administer at least 8 hours apart loratadine [Claritin] 10 mg tablet 10 mg PO DAILY diclofenac sodium [Voltaren] 1 % gel 2 g topical QID Rx Instructions: apply to single elbow, wrist or hand; for hand includes palm/fingers/back of hand omeprazole 20 mg capsule,delayed release(DR/EC) 20 mg PO DAILY 30 Days Qty: 30 6RF famotidine [Pepcid] 40 mg tablet 40 mg PO DAILY 30 Days Qty: 30 6RF Referrals: Halley Pizano MD [Primary Care Provider] - (Back sprain/strain) Stand Alone Forms: Work/School Release Print Language: Bangladeshi
== END 2022-06-05 19:30 | disposition home or self-care (01) ==
PROVIDERS: Emergency Provider Emergency Medicine; PCP Internal Medicine
DX: S33.5XXA Sprain of ligaments of lumbar spine, initial encounter (principal); X50.0XXA Overexertion from strenuous movement or load, initial encounter; Y93.89 Activity, other specified; Y92.59 Other trade areas as the place of occurrence of the external cause; Y99.0 Civilian activity done for income or pay
CPT/HCPCS: 72100; 99282; 99283

== ENCOUNTER → 2022-10-12 11:36 | Outpatient (BNVA) | payer MEDICAID, SELFPAY | PROVIDERS: PCP Nurse Practitioner Primary Care; Visit Provider Nurse Practitioner | DX: Z01.818 Encounter for other preprocedural examination (principal); K21.9 Gastro-esophageal reflux disease without esophagitis; Z87.19 Personal history of other diseases of the digestive system | CPT/HCPCS: 99212 ==

== ENCOUNTER 2023-09-03 14:11 | Outpatient (REF) | payer MEDICAID, SELFPAY ==
[2023-09-03 14:20] LABS: MANUAL DIFF FLAG NO
[2023-09-03 15:26] LABS: Basophils Percent Auto 0.4 % (0-2); Eosinophils Absolute Auto 0.4 X10*3/uL (0.0-0.4); Eosinophils Percent Auto 4.2 % (0-4); Imm Gran Abs Auto 0.01 X10*3/uL (0.00-0.03); Imm Gran Pct Auto 0.1 % (0.0-0.4); Lymphocytes Absolute Auto 1.1 X10*3/uL (1.2-4.9); Lymphocytes Percent Auto 12.7 % (20-40); Mean Corpuscular HGB Conc 32.7 g/dl (31.0-36.0); Mean Corpuscular Hemoglobin 29.8 pg (27.0-33.0); Mean Corpuscular Volume 91.2 fL (80.0-98.0); Mean Platelet Volume 11.4 fL (9.4-12.4); Monocytes Absolute Auto 0.6 X10*3/uL (0.1-1.2); Monocytes Percent Auto 6.4 % (2-11); Neutrophils Absolute Auto 6.5 x10*3/uL (2.0-8.3); Neutrophils Percent Auto 76.2 % (45-73); Platelet Count 220 X10*3/uL (160-400); Red Blood Count 5.37 X10*6/uL (4.60-5.80); Red Cell Distribution Width 13.2 % (11.0-16.0); White Blood Count 8.6 X10*3/uL (4.8-10.8)
[2023-09-03 15:57] LABS: Alanine Aminotransferase 20 U/L (0-40); Albumin Level 4.8 g/dL (3.5-5.0); Alkaline Phosphatase 80 U/L (39-117); Anion Gap 12 (12-20); Aspartate Amino Transferase 19 U/L (5-37); Bilirubin Total 1.3 mg/dL (0.0-1.0); Blood Urea Nitrogen 17 mg/dL (9-16); Calcium 10.2 mg/dL (8.4-10.2); Carbon Dioxide 29 mmol/L (22-29); Chloride 105 mmol/L (96-108); Estimated Glomerular Filt Rate > 60; Glucose Random 74 mg/dL (60-115); Potassium 4.6 mmol/L (3.3-5.1); Sodium 141 mmol/L (135-145); Total Protein 8.2 g/dL (6.5-8.0)
== END 2023-09-03 14:12 | disposition home or self-care (01) ==
LOC: HO.LAB 14:11
PROVIDERS: Visit Provider Nurse Practitioner
DX: Z01.818 Encounter for other preprocedural examination (principal); Z87.19 Personal history of other diseases of the digestive system
CPT/HCPCS: 36415; 80053; 85025

== ENCOUNTER 2023-10-09 14:27 | Outpatient (AMB) | payer MEDICAID, SELFPAY ==
[2023-10-09 14:28] VITALS: BP 134/67; PULSE 73; BMI 27.1
--- NOTE | 2023-10-09 14:28 | A.OFFVIS_ITS ---
Intake Vital Signs 10/09/23 14:28 Height 6 ft 3 in Weight 216 lb 14.958 oz BMI 27.1 BP 134/67 Blood Pressure Location Lt brachial Position Sitting Pulse 73 Pulse Source Pulse Oximeter Intake Visit Reasons: Follow up 6 months GERD Intake Note: Pt presents to the office today for a 6 month follow up for GERD. Pt states his GERD is much better now that he takes omeparazole every morning. Pt denies any other GI concerns at this time. Allergies NSAIDS (Non-Steroidal Anti-Inflamma [NSAIDS (NON-STEROIDAL ANTI-INFLAMMA] Allergy (Severe, Verified 10/09/23 14:30) STOMACH ULCER shrimp [SHRIMP] Allergy (Severe, Verified 10/09/23 14:30) ANAPHYLAXIS latex [LATEX] Allergy (Intermediate, Verified 10/09/23 14:30) RASH aspirin [ASPIRIN] Adverse Reaction (Severe, Verified 10/09/23 14:30) HX GASTRIC ULCER, BLEEDING HPI Follow up 6 months GERD HPI Details Assessment & Plan (1) GERD (gastroesophageal reflux diseas e): Code(s): K21.9 - Gastro-esophageal reflux disease without esophagitis Plan: Serbian #Isai, live Doing well feeling well, he is completely symptom free and he feels that the omeprazole the morning and famotidine at night have resolved any pain or heartburn he may have been experiencing. [facility] of the [facility], he was supposed to have repeat EGD but appears to have been lost to the computer conversion. I will order this now for surveillance. There are no prior problems with anesthesia or sedation. He denies any cardiac or respiratory problems. No ID problems. His hg/hct through his PCP has been normal pre pt report. He is agreeable for going for lab work today so that we will have current liver and kidney functions. Return office visit in 6 months and of course I will see him after the endoscopy. (2) History of duodenal ulcer: Code(s): Z87.19 - Personal history of other diseases of the digestive system (3) Pre-op examination: Code(s): Z01.818 - Encounter for other preprocedural examination Orders: Orders Comprehensive Met. Panel Today Z01.818 - Encounte r for other prepro cedural examinatio n, Z87.19 - Person al history of othe r diseases of the digestive system Complete Blood Cou nt Auto Diff Today Z01.818 - Encounte r for other prepro cedural examinatio n, Z87.19 - Person al history of othe r diseases of the digestive system Medications: New famotidine 20 mg PO BEDTIME 30 tabs 6RF acid r eflux Z87.19 - Personal history of other d iseases of the dig estive system Refilled omeprazole 20 mg PO DAILY 30 days 30 caps 6RF K21.9 - Gastro-eso phageal reflux dis ease without esoph agitis, Z87.19 - P ersonal history of other diseases of the digestive sys tem LABS: Laboratory Tests 09/03/23 14:18 WBC 8.6 RBC 5.37 Hgb 16.0 Hct 49.0 MCV 91.2 MCH 29.8 Plt Count 220 Estimated GFR > 60 Total Bilirubin 1.3 H AST 19 ALT 20 Alkaline Phosphata se 80 EGD BIOPSY CORRESPONDENCE On 07/03/23 @ 09:58 Zarina Bruno Wrote To Zarina Bruno lvm, ltr mailed to pt to call ofc to follow up. Zarina Bruno completed item. On 06/07/23 @ 16:38 Marah Kent Wrote To [facility] Pt cancelled EGD because he was sick. He would like to r/s, please contact PT to r/s. TODAY'S VISIT Serbian #Cornelia Live He did not get the letter and no rescheduled date yet for his EGD. I will walk him down to the schedulers. He continues to do quite well taking his omeprazole every day with good symptom control. ROV 6 mos. PFSH Medical History History of duodenal ulcer Surgical History Hx of colonoscopy (~02/2018) Hx of endoscopy Family History Father HTN (hypertension) Mother HTN (hypertension) Social History (Updated 10/09/23 @ 14:31 by Estephania Anthony MA) Alcohol intake: never Patient Tobacco Use Status: Never used Tobacco Current occupational status: employed Current occupation: right handed Review of Systems Const Denies fatigue, Denies fever(s), Denies night sweats, Denies poor appetite and Denies weight loss ENT Reports Normal hearing present, Denies dental pain, Denies dysphagia, Denies hearing loss, Denies mouth pain, Denies odynophagia, Denies throat swelling, Denies tongue swelling and Reports other (Dentition adequate) Card Reports no additional complaints Resp Reports no additional complaints GI Details: Denies abdominal pain, Denies melena, Reports bloating, Denies hematochezia, Reports constipation, Denies GI cramping, Denies dysphagia, Denies excessive flatus, Reports early satiety, Reports heartburn, Denies diarrhea, Denies nausea, Denies odynophagia, Denies vomiting and Denies hematemesis Skin/Breast Denies pruritus, Denies lesions, Denies rash and Denies jaundice Neuro Reports Normal hearing present and Denies Abnormal speech present Endo Denies fatigue Aller/Immun Denies throat swelling and Denies tongue swelling Physical Exam Vital Signs: Last Vital Signs Pulse 73 10/09/23 14:28 BP 134/67 10/09/23 14:28 BMI result Body Mass Index 27.1 Const General: cooperative, no acute distress, well developed and well groomed Nutritional Appearance: average body habitus and well nourished Orientation/consciousness: oriented to person, oriented to place and oriented to time Limitations: language barrier HEENT Head: Yes normocephalic and Yes atraumatic Eyes General: appearance normal, both eyes and all related structures Pupils: Equal, round and reactive pupils present Neck Neck: Yes normal visual inspection and Yes no lymphadenopathy Thyroid: Thyroid normal Resp Effort & Inspection: normal respiratory effort and able to speak in complete sentences Auscultation: clear to auscultation bilaterally Cardio Rate: regular rate Rhythm: regular rhythm Heart sounds: Normal, physiologic split S2 sound present Peripheral pulses: radial pulses present and posterior tibial pulses present GI Inspection: No distended, No Abdominal panniculus present and Yes obesity Palpation (GI): Soft to palpation, nontender, no guarding, not rigid and No hepatosplenomegaly present Percussion: Yes normal to percussion Auscultation: normal bowel sounds Rectal Exam - Male: Yes deferred Skin General skin exam: no rashes or lesions noted, turgor normal, skin not dry, no jaundice, No spider nevi and no striae Rashes: no rashes Nails: normal Neuro General: oriented to person, oriented to place and oriented to time Cranial nerves: Yes Equal, round and reactive pupils present and Yes Normal hearing present Speech: No Abnormal speech present Extrem General: Yes normal to inspection, No clubbing, No cyanosis and No edema Psych Appearance: grossly normal and well kempt Mental Status: mental status grossly normal Speech and movement: Normal speech and movement present Affect: normal affect Attitude: cooperative Thought process: Normal thought process present and not confabulating Thought content: Normal thought content present Insight: Limited insight present (Psych) Judgement: Limited judgement present (Psych) Results Reviewed Results Reviewed: Laboratory Tests 09/03/23 14:18 WBC 8.6 RBC 5.37 Hgb 16.0 Hct 49.0 MCV 91.2 MCH 29.8 Plt Count 220 Estimated GFR > 60 Total Bilirubin 1.3 H AST 19 ALT 20 Alkaline Phosphatase 80 Assessment & Plan Assessment & Plan (1) GERD (gastroesophageal reflux disease): Code(s): K21.9 - Gastro-esophageal reflux disease without esophagitis Plan Serbian #Cornelai Live He did not get the letter and no rescheduled date yet for his EGD. I will walk him down to the schedulers. He continues to do quite well taking his omeprazole every day with good symptom control. ROV 6 mos. EGD BIOPSY Coding Level of Care Code Est Pt Level 3 (59469) Diagnoses GERD (gastroesophageal reflux disease) K21.9
== END 2023-10-09 15:21 | disposition home or self-care (01) ==
PROVIDERS: PCP Internal Medicine; Visit Provider Nurse Practitioner
DX: K21.9 Gastro-esophageal reflux disease without esophagitis (principal)
CPT/HCPCS: 99213

== ENCOUNTER → 2023-10-09 14:27 | Outpatient (BNVA) | payer MEDICAID, SELFPAY | PROVIDERS: PCP Internal Medicine; Visit Provider Nurse Practitioner | DX: K21.9 Gastro-esophageal reflux disease without esophagitis (principal) | CPT/HCPCS: 99212 ==

== ENCOUNTER 2023-11-04 13:55 | Outpatient (AMB) | payer MEDICAID, SELFPAY ==
--- NOTE | 2023-11-04 13:57 | MHC.OFFVIS ---
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 Intake Note: New patient c/o pressure on left side of chest Director Of Compensation Required: Yes Director Of Compensation Name: [facility] [place] Allergies NSAIDS (Non-Steroidal Anti-Inflamma [NSAIDS (NON-STEROIDAL ANTI-INFLAMMA] Allergy (Severe, Verified 10/09/23 14:30) STOMACH ULCER shrimp [SHRIMP] Allergy (Severe, Verified 10/09/23 14:30) ANAPHYLAXIS latex [LATEX] Allergy (Intermediate, Verified 10/09/23 14:30) RASH aspirin [ASPIRIN] Adverse Reaction (Severe, Verified 10/09/23 14:30) HX GASTRIC ULCER, BLEEDING Medication List - Last Reviewed 11/04/23 by MEAGAN Mendes albuterol sulfate 90 mcg/actuation (Ventolin HFA) 2 puffs inhalation Q6H PRN cyclobenzaprine 10 mg PO BEDTIME PRN famotidine 20 mg PO BEDTIME hydrochlorothiazide 12.5 mg PO QAM omeprazole 20 mg PO DAILY HPI HPI Comments History of Present Illness Details Jose Alberto was referred here for evaluation of chest pain. Is a 33-year-old male with prior history of hypertension currently on medications as blood pressures been well controlled. Has family history of hypertension. History was obtained with help of a certified surgery specialist in the room. Patient about 5 months ago he developed left-sided chest pain which was near his armpit which was sharp in nature radiating to his precordial area. Symptoms happen while he was driving. He did present to the emergency room EKG was normal and there was subsequently released home. Symptoms overall lasted for about 10-15 minutes. Since then he has been exercising going to gym doing cardio exercise and weight training and strength training and has had no recurrent exertional induced chest pain. Continues to intermittently have mild discomfort. He said deep breathing actually improved the pain. The pain was not reproducible by touch. With exercise he denies any chest pain. Otherwise he has no other cardiac symptoms. [facility] Medical History History of duodenal ulcer Surgical History Hx of colonoscopy (~02/2018) Hx of endoscopy Family History Father HTN (hypertension) Mother HTN (hypertension) Social History Alcohol intake: never Patient Tobacco Use Status: Never used Tobacco Current occupational status: employed Current occupation: right handed Review of Systems Const Denies chills, Denies daytime sleepiness, Denies fatigue, Denies fever(s), Denies frequent falls, Denies poor appetite, Denies snoring, Denies stops breathing during sleep, Denies weakness, Denies weight gain and Denies weight loss Eyes Denies loss of vision ENT Denies dizziness and Denies hearing loss Card Denies chest pain, Denies claudication, Denies leg edema, Denies lightheadedness, Denies palpitations, Denies dyspnea, Denies dyspnea on exertion and Denies orthopnea Resp Denies cough, Denies excessive phlegm production, Denies dyspnea, Denies dyspnea on exertion, Denies snoring and Denies wheezing GI Denies abdominal pain, Denies hematochezia, Denies change in bowel habits, Denies nausea and Denies vomiting Denies dysuria and Denies urinary frequency Musc Denies arthralgias, Denies muscle weakness, Denies numbness and Denies other (frequent falls) Skin/Breast Denies nail changes and Denies rash Neuro Denies Abnormal speech present, Denies dizziness, Denies frequent falls, Denies loss of vision, Denies memory loss, Denies numbness and Denies weakness Psych Denies depression and Denies memory loss Endo Denies fatigue and Denies palpitations Agustin/Lymph Reports easy bruising and Reports other (anemia) Aller/Immun Denies wheezing Physical Exam Vital Signs: Last Vital Signs Pulse 78 11/04/23 13:58 BP 140/74 H 11/04/23 13:58 BMI result Body Mass Index 26.7 Const General: cooperative, comfortable, no acute distress, well developed, alert, awake and Physically active Nutritional Appearance: well nourished Orientation/consciousness: patient oriented x3 Limitations: no limitations HEENT Head: Yes normocephalic and Yes atraumatic Neck Neck: Yes trachea midline, Yes supple and Yes no JVD Resp Effort & Inspection: normal respiratory effort Auscultation: clear to auscultation bilaterally GI Auscultation: normal bowel sounds Skin General skin exam: no rashes or lesions noted Neuro General: patient oriented x3 and no focal motor deficits Speech: No Abnormal speech present Extrem General: Yes no clubbing, cyanosis or edema Office Procedures EKG Details: EKG shows normal sinus rhythm normal EKG [id number], Complete Assessment & Plan Assessment & Plan (1) Non-cardiac chest pain: Code(s): R07.89 - Other chest pain Plan: Patient's chest pain sharp in nature not related to exertion is not happening now with exertion with normal EKG. He has no major risk factors. Likelihood of underlying ischemic chest pain is low. Obtain echocardiogram given his history of hypertension there is no other cardiac workup is indicated. Most likely musculoskeletal in nature. (2) HTN (hypertension): Code(s): I10 - Essential (primary) hypertension Plan: Hypertension which appears to be well controlled on current therapy continue the same. Importance of good blood pressure control was discussed. Low-salt diet was discussed advised to maintain heart healthy lifestyle. Obtain echocardiogram to evaluate LV systolic and diastolic function. Will follow up in the clinic if need be Coding Level of Care Code New Pt Level 3 (67324) Diagnoses Non-cardiac chest pain R07.89 HTN (hypertension) I10 CPT Codes EKG - CPT: 53879-[id number], Complete ([id number])
[2023-11-04 13:58] VITALS: BP 140/74; PULSE 78; BMI 26.7
== END 2023-11-04 14:26 | disposition home or self-care (01) ==
PROVIDERS: PCP Internal Medicine; Referring Provider Internal Medicine; Visit Provider Internal Medicine Cardiovascular Disease
DX: R07.89 Other chest pain (principal); I10 Essential (primary) hypertension
CPT/HCPCS: 93010; 99203

== ENCOUNTER → 2023-11-04 13:55 | Outpatient (BNVA) | payer MEDICAID, SELFPAY | PROVIDERS: PCP Internal Medicine; Visit Provider Internal Medicine Cardiovascular Disease | DX: I10 Essential (primary) hypertension (principal); R07.89 Other chest pain | CPT/HCPCS: 93005; 99202 ==

== ENCOUNTER 2023-11-18 09:06 | Outpatient (REF) | payer MEDICAID, SELFPAY ==
[2023-11-18 11:43] LABS: MANUAL DIFF FLAG NO
[2023-11-18 11:52] LABS: Basophils Absolute Auto 0.1 X10*3/uL (0.0-0.2); Basophils Percent Auto 0.8 % (0-2); Eosinophils Absolute Auto 0.4 X10*3/uL (0.0-0.4); Eosinophils Percent Auto 6.3 % (0-4); Hemoglobin 16.5 g/dl (14.0-18.0); Imm Gran Abs Auto 0.01 X10*3/uL (0.00-0.03); Imm Gran Pct Auto 0.2 % (0.0-0.4); Lymphocytes Absolute Auto 1.6 X10*3/uL (1.2-4.9); Lymphocytes Percent Auto 24.7 % (20-40); Mean Corpuscular Hemoglobin 29.3 pg (27.0-33.0); Mean Corpuscular Volume 88.7 fL (80.0-98.0); Mean Platelet Volume 11.5 fL (9.4-12.4); Monocytes Absolute Auto 0.5 X10*3/uL (0.1-1.2); Monocytes Percent Auto 7.3 % (2-11); Neutrophils Percent Auto 60.7 % (45-73); Platelet Count 206 X10*3/uL (160-400); Red Blood Count 5.64 X10*6/uL (4.60-5.80); Red Cell Distribution Width 12.4 % (11.0-16.0); White Blood Count 6.6 X10*3/uL (4.8-10.8)
[2023-11-18 12:01] LABS: Estimated Average Glucose 111 mg/dL; Hemoglobin A1c % 5.5 % (<6.0)
[2023-11-18 12:47] LABS: HIV AB/AG Nonreactive (Nonreactive); HIV Num 1 0.05 S/CO (0.00-0.99); ~HepC Num1 0.14 S/CO (0.00-0.79); ~Hepatitis C Antibody Nonreactive (Nonreactive)
[2023-11-18 12:55] LABS: Alanine Aminotransferase 17 U/L (0-40); Albumin Level 4.5 g/dL (3.5-5.0); Alkaline Phosphatase 73 U/L (39-117); Anion Gap 11 (12-20); Aspartate Amino Transferase 15 U/L (5-37); Bilirubin Direct 0.3 mg/dL (0.0-0.5); Blood Urea Nitrogen 13 mg/dL (9-16); Calcium 9.7 mg/dL (8.4-10.2); Carbon Dioxide 27 mmol/L (22-29); Chloride 104 mmol/L (96-108); Cholesterol 180 mg/dL (<200); Estimated Glomerular Filt Rate > 60; Glucose Random 90 mg/dL (60-115); HDL Cholesterol 37 mg/dL (>40); LDL Cholesterol Calculated 125 mg/dL (<100); Potassium 4.3 mmol/L (3.3-5.1); Sodium 138 mmol/L (135-145); Total Protein 7.8 g/dL (6.5-8.0); Triglycerides 91 mg/dL (<150)
[2023-11-20 22:38] LABS: TS Negative Control Passed; TS Panel A 0; TS Panel B 0; TS Positive Control Passed; TSpotTB Negative (Negative)
== END 2023-11-18 09:07 | disposition home or self-care (01) ==
LOC: HO.HHCL 09:06
PROVIDERS: Visit Provider Internal Medicine
DX: I10 Essential (primary) hypertension (principal); Z11.1 Encounter for screening for respiratory tuberculosis
CPT/HCPCS: 36415; 80048; 80061; 80076; 83036; 85025; 86481; 86803; 87389